=== PATIENT | male | born 1965 | race Caucasian/White ===

== ENCOUNTER 2017-06-28 07:00 | Day surgery (SDC) | payer OTHER ==
[2017-06-28] MEDS ORDERED: Lidocaine 2% w Epi 1:100,000 Inj IJ ONE (07:30)
[2017-06-28] MEDS ORDERED: EPINEPHrine 1:1000 Nasal Sol(30mL) ONE (07:30)
[2017-06-28] MEDS ORDERED: ceFAZolin 1 gm FROZEN Premix 1 GM/50 ML ML IVPB ONE (07:30)
[2017-06-28] MEDS ORDERED: Acetaminophen-Codeine 300/30 mg Tab PO PRN (08:45)
[2017-06-28] MEDS ORDERED: Dextrose 5%/0.45% NS 1,000 ML IV SCH (08:45)
[2017-06-28] MEDS ORDERED: Lactated Ringer's 1,000 ML IV ONE (10:35)
[2017-06-28] MEDS ORDERED: Propofol 10 mg/ml Inj (20 ML) ONE (10:39)
[2017-06-28] MEDS ORDERED: Midazolam 2 MG/2 ML VIAL ONE (10:41)
[2017-06-28] MEDS ORDERED: HYDROmorphone 0.5 mg/0.5 ml ISec IVP PRN (10:45)
[2017-06-28] MEDS ORDERED: Neostigmine Methylsulfate 3mg/3ml Syringe IV ONE (11:40)
[2017-06-28 13:30] VITALS: O2SAT 96
[2017-06-28 15:13] VITALS: BP 127/72; PULSE 72; RESP 20; TEMP 97.6
--- NOTE | 2017-06-28 20:09 | OP ---
PROCEDURE DATE: 06/28/2017 PREOPERATIVE DIAGNOSES: Deviated septum, enlarged turbinates, and sinusitis. POSTOPERATIVE DIAGNOSES: Deviated septum, enlarged turbinates, and sinusitis. SURGEON: Jefferson Peres MD PROCEDURE: Septoplasty, endoscopic bilateral ethmoidectomy, endoscopic bilateral maxillary antrostomy, endoscopic bilateral inferior turbinate reduction. FINDINGS: Deviated septum, enlarged inferior turbinates, and maxillary antrum stenosed on both sides, sinusitis changes noted the ethmoids on both sides. DESCRIPTION OF PROCEDURE: The patient was brought into the room, placed in a supine position. Anesthesia was initiated through an ET tube. Navigation was set up and used throughout the case in order to ensure the skull base and orbits were not entered. Adrenaline-soaked pledgets were inserted into the nasal cavity, remained there for at least 5 minutes and removed. The patient was draped in the usual manner. The septum was injected with lidocaine with epinephrine on both sides. A Wagner's incision was made on the left and a mucoperichondrial flap was raised. A vertical incision was made in the cartilage leaving a 1.5 cm anterior and superior strut and the mucoperichondrial flap was raised on the other side. Deviated portions of the cartilage and bones were removed using forceps and chisel. A quilting suture was used to suture the two flaps together and close the Uehling's incision. Next, a 0 degree scope was inserted into the nasal cavity. The inferior turbinates were noted to be enlarged and reduced in size using scissors going from an inferior to superior and anterior to posterior direction on both sides, first on the left and then the right. Bleeding was controlled using suction cautery. Next, the middle turbinates on both sides were injected with lidocaine with epinephrine. Attention was turned to the left and the middle turbinate was medialized. The uncinate process was medialized using a freer elevator and removed using forceps. The debrider was used to enter the ethmoid bulla inferomedially going posteriorly to the basal lamella then anteriorly and superiorly until the ethmoid bulla was removed. The basal lamella was entered. The posterior ethmoid cells were entered and opened. The skull base was identified and followed anteriorly all the way to the area of the anterior ethmoid air cells. Curved suction hooked up to navigation was used to locate the maxillary antrum, which was noted to be completely stenosed and opened using forceps. Attention was turned to the other side. The middle turbinate was medialized. The uncinate process was medialized using a freer elevator and removed using forceps. The debrider was used to enter the ethmoid bulla inferomedially going posteriorly to the basal lamella then anteriorly and superiorly until the ethmoid bulla was removed. The basal lamella was entered. The posterior ethmoid cells were entered and opened. The skull bases were identified and followed anteriorly all the way to the area of the anterior ethmoid air cells. Curved suction hooked up to navigation was used to locate the maxillary antrum. This was noted to be stenosed and opened using forceps. At that point, bleeding was controlled on both sides using Adrenaline-soaked pledgets and suction cautery. Splints were placed. Stents were placed. The patient was taken off anesthesia and taken to recovery room in stable manner. Jefferson Peres MD NAN
== END 2017-06-28 14:30 | disposition home or self-care (01) ==
LOC: C.SDS 07:00
PROVIDERS: ATTEND Otolaryngology
DX: J34.2 Deviated nasal septum (principal); J34.3 Hypertrophy of nasal turbinates; J32.0 Chronic maxillary sinusitis; J32.2 Chronic ethmoidal sinusitis
CPT/HCPCS: 30140; 30520; 31255; 31256; 82948; 88304; 88311; J0690; J1170; J2250; J2405; J2704; J2710; J3010; J7120

== ENCOUNTER 2017-06-28 16:49 | Observation (INO) | payer OTHER ==
--- NOTE | 2017-06-28 17:09 | C.PDOC ---
History Of Present Illness 52 yo male s/p sinus surgery performed by few hours ago, was sent to ED from recovery room after developed spontaneous epistaxis from both nostrils. Pt denies bleeding from mouth, denies dyspnea, SOB or any other active complaints. Time Seen by Provider: 06/28/17 17:06 Chief Complaint (Nursing): ENT Problem History Per: Patient Past Medical History Reviewed: Historical Data, Nursing Documentation, Vital Signs Vital Signs: Last Vital Signs Temp 98.7 F 06/28/17 16:53 Pulse 130 H 06/28/17 16:53 Resp 20 06/28/17 16:53 BP 148/81 06/28/17 16:53 Pulse Ox 95 06/28/17 17:10 - Medical History PMH: Hypercholesterolemia, Hypothyroidism Denies: Chronic Kidney Disease Other Surgeries: Sinus surgery few hours ago Family History: States: No Known Family Hx - Social History Hx Alcohol Use: No Hx Substance Use: No Review Of Systems Except As Marked, All Systems Reviewed And Found Negative. Constitutional: Negative for: Fever, Chills ENT: Positive for: Nose Discharge Cardiovascular: Negative for: Chest Pain, Palpitations, Orthopnea, Light Headedness Respiratory: Negative for: Cough, Shortness of Breath, Wheezing Gastrointestinal: Negative for: Nausea, Vomiting Neurological: Negative for: Altered Mental Status, Dizziness Physical Exam - Physical Exam Appears: Well, Non-toxic, No Acute Distress Skin: Normal Color, Warm, No Rash, No Ecchymosis Eye(s): bilateral: PERRL Ear(s): Bilateral: Normal Nose: No Flaring, Epistaxis (B/L), No Septal Hematoma Oral Mucosa: Moist Tongue: Normal Appearing Throat: No Erythema, No Drooling Neck: Supple Cardiovascular: Rhythm Regular, No Murmur, No JVD Respiratory: No Decreased Breath Sounds, No Accessory Muscle Use, No Stridor, No Wheezing Gastrointestinal/Abdominal: Soft, No Tenderness Extremity: Normal ROM, No Pedal Edema Neurological/Psych: Oriented x3, Normal Speech ED Course And Treatment O2 Sat by Pulse Oximetry: 95 Pulse Ox Interpretation: Normal Progress Note: CASE DISCUSSED WITH ARCELIA WHO WILL RE-EVALUATE PATEINT IN ED. After Pt was evaluated by , PT/INR, hydration recommend. At 18:20 , as per , epistaxis resolved, would like to admit to OBS, NPO. On re- eavl, pt appears comforatble, not in any apparent distress. Pt agrees with plan. case discussed with Hospitalist and admission arranged. Disposition - Disposition Disposition: HOSPITALIZED Disposition Time: 18:21 Condition: STABLE Forms: [facility] (Frisian) - Clinical Impression Clinical Impression: Epistaxis, Post surgical complication
[2017-06-28] MEDS ORDERED: Sodium Chloride 0.9% 1,000 ML IV ONE (17:18)
[2017-06-28] MEDS ORDERED: Sodium Chloride 0.9% 1,000 ML ONE (17:42)
--- NOTE | 2017-06-28 23:58 | CP.PCM.HP ---
<Rafael Gann - Last Filed: 06/28/17 23:51> History of Present Illness - History of Present Illness History of Present Illness: 52 yo M with a PMHx of DM2, HLD, Hypothyroidism, presented to ED s/p sinus surgery today at 11am after he developed spontaneous epistaxis from both nostrils. After the surgery, he went home and developed epistaxis and was told to go to ED. Surgery performed by ENT Dr Peres. He has had chronic sinusitis for past 2 years unresolved with antibiotics thus elected to have surgery. He complains of upper teeth pain and watery eyes. He denies bleeding from mouth, dyspnea, shortness of breath, vision changes, chest pain, abdominal pain, diarrhea, n/v, f/c. PMD: Dr Gudino PMHx: DM2, HLD, Hypothyroidism PSHx: sinus surgery 06/28/17 Home Meds: alogliptin 12.5-1000; glimepiride 2mg po bid; levothyroxine 1000mcg po qd Allergies: seasonal allergies - sneezing FamHx: Mother w/ DM SoicalHx: denies tobacco, etOh, drugs; lives at home with family; currently unemployed Present on Admission - Present on Admission Any Indicators Present on Admission: No History of DVT/PE: No Urinary Catheter: No Decubitus Ulcer Present: No Review of Systems - Constitutional Constitutional: Headache. absent: Chills, Fatigue, Fever - EENT Eyes: Discharge ("watery eyes"). absent: Change in Vision Ears: absent: Ear Pain Nose/Mouth/Throat: As Per HPI, Epistaxis Additional comments: no septal hematoma; nasal gauze in place c/d/i; - Cardiovascular Cardiovascular: absent: Chest Pain, Diaphoresis, Edema - Respiratory Respiratory: absent: Cough, Dyspnea, Dyspnea on Exertion, Wheezing - Gastrointestinal Gastrointestinal: absent: Abdominal Pain, Constipation, Diarrhea - Genitourinary Genitourinary: absent: Dysuria - Musculoskeletal Musculoskeletal: absent: Back Pain, Muscle Weakness - Integumentary Integumentary: Bleeding Lesions. absent: Lesions - Neurological Neurological: Headaches. absent: Confusion, Convulsions, Dizziness, Focal Weakness - Hematologic/Lymphatic Hematologic: absent: Easy Bleeding Past Patient History - Past Medical History & Family History Past Medical History?: Yes - Past Social History Smoking Status: Never Smoked - CARDIAC Hx Hypercholesterolemia: Yes - PULMONARY Hx Respiratory Disorders: No - NEUROLOGICAL Hx Neurological Disorder: No - HEENT Hx HEENT Problems: Yes Other/Comment: DX: DEVIATED SEPTUM - RENAL Hx Chronic Kidney Disease: No - ENDOCRINE/METABOLIC Hx Diabetes Mellitus Type 2: Yes Hx Hypothyroidism: Yes - HEMATOLOGICAL/ONCOLOGICAL Hx Blood Disorders: No Hx Blood Transfusions: No - INTEGUMENTARY Hx Dermatological Problems: No - MUSCULOSKELETAL/RHEUMATOLOGICAL Hx Falls: No - GASTROINTESTINAL Hx Gastrointestinal Disorders: No - GENITOURINARY/GYNECOLOGICAL Hx Genitourinary Disorders: No - PSYCHIATRIC Hx Substance Use: No - SURGICAL HISTORY Hx Surgeries: Yes Other/Comment: SINUS SX 2017 - ANESTHESIA Hx Anesthesia: No Hx Anesthesia Reactions: No Hx Malignant Hyperthermia: No Has any member of the family had a problem w/ anesthesia?: No Meds Allergies/Adverse Reactions: Allergies Allergy/AdvReac Type Severity Reaction Status Date / Time No Known Allergies Allergy Verified 06/28/17 16:58 Physical Exam - Constitutional Appears: Well, No Acute Distress - Head Exam Head Exam: ATRAUMATIC, NORMAL INSPECTION - Eye Exam Eye Exam: EOMI Pupil Exam: PERRL - ENT Exam ENT Exam: Mucous Membranes Moist - Neck Exam Neck exam: Positive for: Normal Inspection. Negative for: Lymphadenopathy, Tenderness - Respiratory Exam Respiratory Exam: Clear to Auscultation Bilateral, NORMAL BREATHING PATTERN. absent: Rales, Rhonchi, Wheezes - Cardiovascular Exam Cardiovascular Exam: REGULAR RHYTHM, RRR. absent: Bradycardia, Tachycardia, JVD , +S1, +S2 - GI/Abdominal Exam GI & Abdominal Exam: Normal Bowel Sounds, Soft. absent: Distended, Organomegaly , Rebound, Tenderness - Rectal Exam Rectal Exam: Deferred - Extremities Exam Extremities exam: Positive for: normal capillary refill, normal inspection, pedal pulses present. Negative for: pedal edema, tenderness - Neurological Exam Neurological exam: Alert, CN II-XII Intact, Oriented x3 - Psychiatric Exam Psychiatric exam: Normal Affect, Normal Mood - Skin Skin Exam: Dry, Intact, Normal Color, Warm Additional comments: NO pallor Results - Vital Signs Recent Vital Signs: Last Vital Signs Temp 99.6 F 06/28/17 20:26 Pulse 116 H 06/28/17 20:26 Resp 20 06/28/17 20:26 BP 139/78 06/28/17 20:26 Pulse Ox 98 06/28/17 20:26 - Labs Labs: Laboratory Results - last 24 hr 06/28/17 06/28/17 17:29 21:17 PT 11.0 INR 1.0 APTT 31 POC Glucose (mg/dL) 208 H Assessment & Plan (1) Post surgical complication Assessment and Plan: epistaxis likely 2/2 recent sinus surgery NPO Pain management w/ tylenol 650mg po q6 prn ice chips for dry mouth keep head of bed at 30 deg change nasal gauze as necessary Status: Acute (2) Prophylactic measure Assessment and Plan: DVT: SCDs: AC not indicated 2/2 to epistaxis GI: pepcid 20mg po qd Diet: NPO for now con't home medications algoliptin, glimepiride, levothyroxine Status: Acute <Wayne Mittal - Last Filed: 06/29/17 06:28> Results - Vital Signs Recent Vital Signs: Last Vital Signs Temp 98.0 F 06/29/17 04:05 Pulse 91 H 06/29/17 04:05 Resp 20 06/29/17 04:05 BP 120/75 06/29/17 04:05 Pulse Ox 98 06/29/17 04:05 - Labs Labs: Laboratory Results - last 24 hr 06/28/17 06/28/17 17:29 21:17 PT 11.0 INR 1.0 APTT 31 POC Glucose (mg/dL) 208 H Assessment & Plan - Date & Time Date: 06/29/17 (I have seen and examined the patient. I agree with the findings and plan of care as documented by Dr. Gann. Patient with epistaxis, s/p sinus surgery with Dr. Peres. Bleeding stopped with some packing. Keep patient NPO. Alert Dr Peres if bleeding continues. Monitor for acute changes.) Time: 06:27 Attending/Attestation - Attestation I have personally seen and examined this patient.: Yes I have fully participated in the care of the patient.: Yes I have reviewed all pertinent clinical information: Yes
[2017-06-29] MEDS ORDERED: METFORMIN HCL PO SCH (00:15)
[2017-06-29] MEDS ORDERED: ALOGLIPTIN BENZ PO SCH (00:15)
[2017-06-29] MEDS ORDERED: Levothyroxine 75 MCG TAB PO SCH (06:30)
[2017-06-29 08:38] VITALS: BP 124/78; PULSE 96; RESP 17; TEMP 98; O2SAT 96
--- NOTE | 2017-06-29 09:31 | CP.PCM.PN ---
Subjective - Date & Time of Evaluation Date of Evaluation: 06/29/17 Time of Evaluation: 09:30 - Subjective Subjective: very minimal epistaxis nose: stents in place, no epistaxis noted a/p: epistaxis resolvig f/u tomorrow in office Objective - Vital Signs/Intake and Output Vital Signs (last 24 hours): Temp Pulse Resp BP Pulse Ox 98 F 96 H 17 124/78 96 06/29/17 07:15 06/29/17 07:15 06/29/17 07:15 06/29/17 07:15 06/29/17 07:15 Intake and Output: 06/29/17 06/29/17 06:59 18:59 Intake Total 0 Balance 0 - Medications Medications: Current Medications Acetaminophen (Tylenol 325mg Tab) 650 mg PO Q6 PRN PRN Reason: Pain, moderate (4-7) Last Admin: 06/29/17 08:02 Dose: 650 mg Famotidine (Pepcid) 20 mg PO DAILY [facility] Glimepiride (Amaryl) 2 mg PO BID [facility] Last Admin: 06/29/17 01:00 Dose: 2 mg Home Med (Alogliptin Scar/Metformin Hcl [Alogliptin-Metformin 12.5-1000]) 1 tab PO BID [facility] Influenza Virus Vaccine (Fluzone (36 Months - 7 Yrs)) 45 mcg IM .ONCE ONE Stop: 07/01/17 10:01 Levothyroxine Sodium (Synthroid) 75 mcg PO DAILY@0630 [facility] Last Admin: 06/29/17 06:05 Dose: 75 mcg Pneumococcal Polyvalent Vaccine (Pneumovax 23 Vaccine) 0.5 ml IM .ONCE ONE Stop: 06/29/17 10:01 - Labs Labs: PT 11.0 SECONDS (9.7-12.2) 06/28/17 17:29 INR 1.0 06/28/17 17:29 APTT 31 SECONDS (21-34) 06/28/17 17:29
--- NOTE | 2017-06-29 09:40 | CP.PCM.DIS ---
<Braeden Calvillo - Last Filed: 06/29/17 10:19> Provider - Provider Date of Admission: 06/28/17 18:20 Attending physician: Wayne Mittal MD Primary care physician: Dr. Newberry Consults: Dr. Peres--ENT Time Spent in preparation of Discharge (in minutes): 31 Diagnosis - Discharge Diagnosis (1) Epistaxis Status: Acute (2) Post surgical complication Status: Acute (3) Prophylactic measure Status: Acute Hospital Course - Lab Results Lab Results: Most Recent Lab Values PT 11.0 SECONDS (9.7-12.2) 06/28/17 17:29 INR 1.0 06/28/17 17:29 APTT 31 SECONDS (21-34) 06/28/17 17:29 POC Glucose (mg/dL) 119 mg/dL (65-110) H 06/29/17 06:18 - Hospital Course Hospital Course: On admission: "52 yo M with a PMHx of DM2, HLD, Hypothyroidism, presented to ED s/p sinus surgery today at 11am after he developed spontaneous epistaxis from both nostrils. After the surgery, he went home and developed epistaxis and was told to go to ED. Surgery performed by ENT Dr Peres. He has had chronic sinusitis for past 2 years unresolved with antibiotics thus elected to have surgery. He complains of upper teeth pain and watery eyes. He denies bleeding from mouth, dyspnea, shortness of breath, vision changes, chest pain, abdominal pain, diarrhea, n/v, f/c. " Hospital Course: Patient admitted for epistaxis due to post surgical complication from nasal sinus drainage for non-remitting sinusitis. Patient's nose packed and head of bed elevated. Gauze was changed as necessary. Per conversation with Dr. Peres, patient stable for discharge and follow up with him in his office tomorrow. Dr. Peres believes it was anterior veinous circulation bleeding, and that is why there is quick resolution. No apparent active epistaxis on inspection at time of discharge. This is a summary of the hospital course. For more information, refer to the medical records. Discharge Exam - Head Exam Head Exam: ATRAUMATIC, NORMOCEPHALIC - Eye Exam Eye Exam: EOMI, PERRL - ENT Exam ENT Exam: Mucous Membranes Moist Additional comments: Nasal packing in place. Packing dry, no active epistaxis. - Respiratory Exam Respiratory Exam: Clear to PA & Lateral, NORMAL BREATHING PATTERN. absent: Rales, Rhonchi, Wheezes - Cardiovascular Exam Cardiovascular Exam: REGULAR RHYTHM, +S1, +S2 - GI/Abdominal Exam GI & Abdominal Exam: Normal Bowel Sounds, Soft. absent: Tenderness - Extremities Exam Extremities exam: normal capillary refill, normal inspection, pedal pulses present - Neurological Exam Neurological exam: Alert, CN II-XII Intact, Oriented x3 - Psychiatric Exam Psychiatric exam: Normal Affect, Normal Mood - Skin Skin Exam: Dry, Intact, Normal Color, Warm Discharge Plan - Follow Up Plan Condition: STABLE Disposition: HOME/ ROUTINE Instructions: Nosebleed (GEN) Additional Instructions: Please follow up with Dr. Peres tomorrow 06/30/17 in his office. You have been cleared for discharge per his instruction. Continue taking the prescribed antibiotics and the pain medication if needed which was stated that you had with you at home. Please follow up with your primary doctor within 1 week of discharge. If there are any new or worsening symptoms, please return to the emergency room. Such symptoms include lightheadedness, fatigue, dizziness. Referrals: Rut Evans MD [Staff Provider] - Jefferson Peres MD [Staff Provider] - <Peterson Newberry H - Last Filed: 06/29/17 12:07> Provider - Provider Date of Admission: 06/28/17 18:20 Attending physician: Wayne Mittal MD Hospital Course - Lab Results Lab Results: Most Recent Lab Values PT 11.0 SECONDS (9.7-12.2) 06/28/17 17:29 INR 1.0 06/28/17 17:29 APTT 31 SECONDS (21-34) 06/28/17 17:29 POC Glucose (mg/dL) 189 mg/dL (65-110) H 06/29/17 11:48 Attending/Attestation - Attestation I have personally seen and examined this patient.: Yes I have fully participated in the care of the patient.: Yes I have reviewed all pertinent clinical information, including history, physical exam and plan: Yes Notes (Text): 06/29/17 12:00 Medical Attending: Patient was seen and examined by me. Agree with the above note by the resident. The patient explained he did ok overnight. He will need to follow up with ENT. As mentioned previously the patient had developed epistaxis post procedure. I asked him how he felt when he walked around and he reported he did ok. Family present also confirmed this as well. The patient reported minimal sore throat as well. Denied airway problems, denied shortness of breath thank you Peterson Newberry
[2017-06-29] MEDS ORDERED: Pneumococcal 23-Valent Vaccine IM ONE (10:00)
[2017-06-29] MEDS ORDERED: Influenza Vaccine 60 mcg/0.5 mL SYR (4YR UP) IM ONE (10:15)
[2017-07-01] MEDS ORDERED: Influenza Virus Vaccine 45 mcg/0.5 ml Syr (36 months - 7 yrs) IM ONE (10:00)
== END 2017-06-29 13:27 | disposition home or self-care (01) ==
LOC: C.ER 16:49 → C.9E 18:20 → C.6T 19:36
PROVIDERS: ADMIT Family Medicine; ATTEND Family Medicine
DX: J95.830 Postprocedural hemorrhage of a respiratory system organ or structure following a respiratory system procedure (principal); R04.0 Epistaxis; E03.9 Hypothyroidism, unspecified; E78.00 Pure hypercholesterolemia, unspecified; Y83.8 Other surgical procedures as the cause of abnormal reaction of the patient, or of later complication, without mention of misadventure at the time of the procedure
CPT/HCPCS: 30901; 82948; 85610; 85730; 96360; 96374; 99284; G0378; J2270; J7040